=== PATIENT | male | born 1990 | race Asian ===

== ENCOUNTER 2016-09-11 19:46 | Emergency (ER) | payer BC ==
[~2016-09-11] VITALS: Ht 167.6 cm; Wt 57.2 kg
[2016-09-11 20:22] LABS: DAU SCREEN DISCLAIMER
[2016-09-11] MEDS ORDERED: SODIUM CHLORIDE FLUSH 10ML SYR IVF ONE (20:30)
[2016-09-11] MEDS ORDERED: LIDOCAINE 1%, 20ML INFIL ONE (20:30)
[2016-09-11] MEDS ORDERED: SODIUM CHLORIDE 0.9% 1,000ML IVBOLUS ONE ×2 (20:30→21:30)
[2016-09-11 21:02] LABS: ASPARTATE AMINO TRANSFERASE 24 U/L (15-37); BLOOD UREA NITROGEN 19 mg/dL (7-18)
[2016-09-11 21:07] LABS: ACETAMINOPHEN < 2 mcg/mL (10-30)
[2016-09-11] MEDS ORDERED: ACETAMINOPHEN 325 MG TABLET PO ONE (21:30)
[2016-09-11] MEDS ORDERED: ACETAMINOPHEN 325 MG TABLET ONE (21:34)
[2016-09-11 22:52] VITALS: BP 98/44
== END 2016-09-11 22:58 | disposition home or self-care (01) ==
LOC: ED 21:56
DX: R50.9 Fever, unspecified (principal); R53.83 Other fatigue
CPT/HCPCS: 36415; 70450; 71010; 80053; 80307; 80329; 81003; 82550; 83605; 84145; 85025; 87040; 93005; 96360; 99291; J7030; G0480